=== PATIENT | female | born 1955 | race Caucasian/White ===

== ENCOUNTER → 2019-11-20 14:58 | Outpatient (CLI) | payer BC, SELFPAY ==
--- NOTE | ~2019-11-20 | MM_ITS ---
EXAMINATION: MM screening [facility] BI w aide HISTORY: Screening mammogram TECHNIQUE: Craniocaudal and mediolateral oblique 3-D tomosynthesis images were obtained and synthetic 2-D images were generated. CAD analysis was submitted and interpreted. COMPARISON: 11/15/2018, 09/26/2017, 08/05/2016 BREAST PARENCHYMAL COMPOSITION: There are scattered areas of fibroglandular density. FINDINGS: There is no evidence of suspicious mass, calcification, or architectural distortion to sugg est malignancy in either breast. There has been no suspicious interval change. IMPRESSION: 1. No mammographic evidence of malignancy. 2. Recommend routine screening mammography in one year. BI-RADS Category 1: Negative Reviewed, dictated and finalized at location A.
== END ==
PROVIDERS: Visit Provider Nurse Practitioner Family
DX: Z12.31 Encounter for screening mammogram for malignant neoplasm of breast (principal)
CPT/HCPCS: 77063; 77067

== ENCOUNTER → 2020-12-07 13:16 | Outpatient (CLI) | payer BC, SELFPAY ==
--- NOTE | ~2020-12-07 | MM_ITS ---
EXAMINATION: MM screening [facility] BI w aide HISTORY: Screening TECHNIQUE: Craniocaudal and mediolateral oblique 3-D tomosynthesis images were obtained and synthetic 2-D images were generated. CAD analysis was submitted and interpreted. COMPARISON: Comparison to multiple prior studies sequentially, with oldest reviewed study dated 09/20. BREAST PARENCHYMAL COMPOSITION: There are scattered areas of fibroglandular density. FINDINGS: There is no evidence of suspicious mass, calcification, or architectural distortion to sugg est malignancy in either breast. There has been no suspicious interval change. IMPRESSION: 1. No mammographic evidence of malignancy. 2. Recommend routine screening mammography in one year. BI-RADS Category 1: Negative Reviewed, dictated and finalized at location A.
== END ==
PROVIDERS: PCP Nurse Practitioner Family; Visit Provider Nurse Practitioner Family
DX: Z12.31 Encounter for screening mammogram for malignant neoplasm of breast (principal)
CPT/HCPCS: 77063; 77067

== ENCOUNTER → 2022-02-14 13:15 | Outpatient (CLI) | payer BC, SELFPAY ==
--- NOTE | ~2022-02-14 | MM_ITS ---
EXAMINATION: MM screening [facility] BI w aide HISTORY: Screening TECHNIQUE: Craniocaudal and mediolateral oblique 3-D tomosynthesis images were obtained and synthetic 2-D images were generated. CAD analysis was submitted and interpreted. COMPARISON: Comparison to multiple prior studies sequentially, with oldest reviewed study dated 08/18. BREAST PARENCHYMAL COMPOSITION: The breasts are almost entirely fatty. FINDINGS: There is no evidence of suspicious mass, calcification, or architectural distortion to sugg est malignancy in either breast. There has been no suspicious interval change. IMPRESSION: 1. No mammographic evidence of malignancy. 2. Recommend routine screening mammography in one year. BI-RADS Category 1: Negative Reviewed, dictated and finalized at location A.
== END ==
PROVIDERS: PCP Nurse Practitioner Family; Visit Provider Nurse Practitioner Family
DX: Z12.31 Encounter for screening mammogram for malignant neoplasm of breast (principal)
CPT/HCPCS: 77063; 77067

== ENCOUNTER 2023-02-21 02:05 | Day surgery (SDC) | payer BC, SELFPAY ==
[2023-02-14 14:16] VITALS: BMI 31.3
[2023-02-21 08:39] VITALS: BP 158/110; PULSE 97; RESP 17; TEMP 36.4; O2SAT 100; BMI 31.3
--- NOTE | 2023-02-21 08:49 | WPDANESEPPF ---
Anes - Initial Pre Proc Eval Procedure: Operation Date: 02/21/23 09:45 Proposed Procedures p Colonoscopy - Jt Naranjo MD Date/Time: 02/21/23 08:49 Surgeon: Jt Naranjo MD Pre Op Diagnosis: positive cologuard Patient Data Age: 67 Gender: F Height: 1.73 m Weight: 93.4 kg Last Vital Signs Temp 97.6 F 02/21/23 08:39 Pulse 97 02/21/23 08:39 Resp 17 02/21/23 08:39 BP 158/110 H 02/21/23 08:39 Pulse Ox 100 02/21/23 08:39 O2 Del Method Room Air 02/21/23 08:39 Allergies Allergy/AdvReac Type Severity Reaction Status Date / Time prochlorperazine Allergy Mild Muscle Verified 02/21/23 08:38 Pain, Muscle Spasms Home Medications Medication Instructions Recorded Confirmed Type brexpiprazole 2 mg tablet (Rexulti) 2 mg PO DAILY 02/14/23 02/21/23 History bupropion HCl 150 mg 24 hr tablet, 150 mg PO TID 02/14/23 02/21/23 History extended release dicyclomine 20 mg tablet 20 mg PO QID PRN Diarrhea 02/14/23 02/21/23 History duloxetine 30 mg capsule,delayed 30 mg PO TID 02/14/23 02/21/23 History release eluxadoline 100 mg tablet (Viberzi) 100 mg PO DAILY 02/14/23 02/21/23 History lamotrigine 100 mg tablet 100 mg PO DAILY 02/14/23 02/21/23 History promethazine 25 mg tablet 25 mg PO DAILY 02/14/23 02/21/23 History Patient hx anesthesia problems: none Family hx anesthesia problems: none Results Review: All pre-operative results and documents have been reviewed as part of the pre-operative evaluation. [facility] [place] Past Medical History Medical History (Updated 02/21/23 @ 08:54 by Jt Naranjo MD) Positive colorectal cancer screening using Cologuard test Social History Social History Smoking status: Never smoker Alcohol intake: never Substance use: never Substance use type: does not use Living arrangements: with family Spiritual care concerns: No Anes - Eval Final PreProcedure Day of Procedure 02/21/23 08:49 Patient weight: obese Heart: regular rate and rhythm Lungs: clear to auscultation Airway: Mallampati scale class II Neurological: alert and oriented Last oral intake: >/= 8 hours ASA classification: II Emergent: no Anesthetic plan: proceed Anesthesia type and monitoring: general GIVS and standard monitoring Results Review: All pre-operative results and documents have been reviewed as part of the pre-operative evaluation. Informed Consent: The patient's anesthetic plan and its attendant risks and benefits were discussed with the patient/family/POA. Questions were solicited and answers provided to the satisfaction of the patient/family/POA.
[2023-02-21] MEDS: LACTATED RINGERS 1,000 ML 150 ML IV CONT (08:52)
--- NOTE | 2023-02-21 08:53 | PM.HPGS ---
History of Present Illness History of Present Illness Consent: Risks, benefits, and alternatives have been discussed and questions answered. Patient agrees to proceed with procedure. Chief complaint: positive cologuard Narrative: Belinda Cortes is a 67 year old female with + cologuard, had colonoscopy about 10 years ago Review of Systems Constitutional: Constitutional: Denies headache(s) and Denies weakness Eyes: Eyes: Denies blurry vision ENT: Reports Normal hearing present, Denies headache(s) and Denies neck pain Cardiovascular: Cardiovascular: Denies chest pain and Denies dyspnea Respiratory: Respiratory: Denies dyspnea Gastrointestinal: Gastrointestinal: Reports no additional gastrointestinal complaints Genitourinary: Genitourinary: Denies dysuria Musculoskeletal: Musculoskeletal: Denies neck pain Integumentary/Breasts: Skin/Breast: Denies dry skin Neurologic: Reports Normal hearing present, Denies headache(s) and Denies weakness Psychiatric: Psychiatric: Denies anxiety Endocrine: Endocrine: Denies change in body appearance Hematologic/Lymphatic: Hematologic/Lymphatic: Denies easy bleeding Allergic/Immunologic: Allergic/Immunologic: Denies urticaria PMFSH Past Medical History Medical History (Updated 02/21/23 @ 08:54 by Jt Naranjo MD) Positive colorectal cancer screening using Cologuard test Social History Social History Smoking status: Never smoker Alcohol intake: never Substance use: never Substance use type: does not use Living arrangements: with family Spiritual care concerns: No Meds Home Medications and Allergies Home Medications Medication Instructions Recorded Confirmed Type brexpiprazole 2 mg tablet (Rexulti) 2 mg PO DAILY 02/14/23 02/21/23 History bupropion HCl 150 mg 24 hr tablet, 150 mg PO TID 02/14/23 02/21/23 History extended release dicyclomine 20 mg tablet 20 mg PO QID PRN Diarrhea 02/14/23 02/21/23 History duloxetine 30 mg capsule,delayed 30 mg PO TID 02/14/23 02/21/23 History release eluxadoline 100 mg tablet (Viberzi) 100 mg PO DAILY 02/14/23 02/21/23 History lamotrigine 100 mg tablet 100 mg PO DAILY 02/14/23 02/21/23 History promethazine 25 mg tablet 25 mg PO DAILY 02/14/23 02/21/23 History Allergies Allergy/AdvReac Type Severity Reaction Status Date / Time prochlorperazine Allergy Mild Muscle Verified 02/21/23 08:38 Pain, Muscle Spasms Vital Signs Vital Signs - 24 hr 02/21/23 08:39 Temperature 97.6 F Pulse Rate 97 Respiratory Rate 17 Blood Pressure 158/110 H Pulse Oximetry 100 Oxygen Delivery Room Air Exam Const: General: comfortable and no acute distress HENMT: Face/Nose/Sinus: Normal nares present Eyes: General: appearance normal, both eyes and all related structures Neck: Neck: no JVD Resp: Auscultation: clear to auscultation bilaterally Cardio: Rate: regular rate Rhythm: regular rhythm GI: Inspection: non-distended GI Palp: Yes Soft to palpation Skin: General skin exam: normal color Neuro: General: gait normal Speech: normal speech Extrem: General: normal to inspection Psych: Mental Status: mental status grossly normal Assessment and Plan Assessment and plan (1) Positive colorectal cancer screening using Cologuard test: Code(s): R19.5 - Other fecal abnormalities Status: Acute Assessment and Plan: colonoscopy
[2023-02-21 09:17] VITALS: BP 126/75; PULSE 87; RESP 22; O2SAT 100
[2023-02-21 09:27] VITALS: BP 116/69; PULSE 80; RESP 24; O2SAT 96
[2023-02-21 09:37] VITALS: BP 119/74; PULSE 75; RESP 15; O2SAT 100
== END 2023-02-21 09:45 | disposition home or self-care (01) ==
PROVIDERS: PCP Nurse Practitioner Family; Visit Provider Internal Medicine Gastroenterology
PROC: 0DJD8ZZ Inspection of Lower Intestinal Tract, Via Natural or Artificial Opening Endoscopic (ICD-10-PCS; CPT 45378; principal; 2023-02-21 09:45)
DX: R19.5 Other fecal abnormalities (principal); D12.3 Benign neoplasm of transverse colon; K57.30 Diverticulosis of large intestine without perforation or abscess without bleeding; K64.8 Other hemorrhoids; E66.9 Obesity, unspecified; Z68.31 Body mass index [BMI] 31.0-31.9, adult
CPT/HCPCS: 45385; 88305; J2704; J7120

== ENCOUNTER 2023-03-19 21:56 | Emergency (ER) | payer BC, SELFPAY ==
--- NOTE | ~2023-03-19 | CT_ITS ---
Noncontrast CT scan of the cervical spine Technique: Multiple contiguous axial [address] images of the cervical spine were obtained and rec onstructed in 2D sagittal and coronal planes on the acquisition scanner. Dose reduction technique was used on this scan by utilizing automated exposure control, adjustment of the mA and/or kV according to patient size. The dose-length product (DLP) was 681.00 mGy-cm. Clinical History: Pain Findings: No fracture identified. There is straightening of normal cervical lordosis, with minimal gr jaki 1 anterolisthesis of C3 over C4, and of C4 over C5. There is moderate degenerative disc narrowing at C5-C6 and C6-C7. There is probable right neural foraminal narrowing at C4-C5 with right facet art hropathy. There is left neural foraminal narrowing at C5-C6, and bilateral neural foraminal narrowing at C6-C7. No prevertebral soft tissue swelling. Impression: No fracture. Minimal grade 1 anterolisthesis of C3 over C4, and of C4 on C5. Mild degenerative spondylosis, as above. Reviewed, dictated and finalized at [facility]. [employer] Impression: No fracture. Minimal grade 1 anterolisthesis of C3 over C4, and of C4 on C5. Mild degenerative spondylosis, as above.
--- NOTE | ~2023-03-19 | CT_ITS ---
Non-contrast Head CT History: Head injury Technique: Axial non-contrast imaging of the brain was performed. Dose reduction technique was used on this scan by utilizing automated exposure control and iterative reconstruction technique. The dose -length product (DLP) was 681.00 mGy-cm. Findings: There is no evidence of intracranial hemorrhage, mass lesion, or acute infarct. Brain par enchyma appears normal. The ventricles and subarachnoid spaces are normal in size. The calvarium ap pears normal. The visualized paranasal sinuses and mastoid air cells are clear. Impression: No significant abnormality seen. Reviewed, dictated and finalized at location . [employer] Impression: No significant abnormality seen.
[2023-03-19 22:02] VITALS: BP 185/115; PULSE 97; RESP 19; TEMP 36.1; O2SAT 99
[2023-03-19 22:58] VITALS: BP 189/116; PULSE 95; RESP 20; O2SAT 98
--- NOTE | 2023-03-19 23:01 | ED.GENADULT ---
HPI - General Adult General Chief complaint: Fall Stated complaint: Fall, face lac Time Seen by Provider: 03/19/23 22:41 History of Present Illness HPI narrative: Patient is a 67-year-old female who presents emergency department with chief complaint of head injury. Patient reports she was walking her trauma tripped fell struck her head patient reports no loss of consciousness patient reports that she has a large laceration to her forehead patient reports that she has no dizziness but does report that she has nausea afterwards. Related Data Home Medications Medication Instructions Recorded Confirmed brexpiprazole 2 mg tablet (Rexulti) 2 mg PO DAILY 02/14/23 02/21/23 bupropion HCl 150 mg 24 hr tablet, 150 mg PO TID 02/14/23 02/21/23 extended release dicyclomine 20 mg tablet 20 mg PO QID PRN Diarrhea 02/14/23 02/21/23 duloxetine 30 mg capsule,delayed 30 mg PO TID 02/14/23 02/21/23 release eluxadoline 100 mg tablet (Viberzi) 100 mg PO DAILY 02/14/23 02/21/23 lamotrigine 100 mg tablet 100 mg PO DAILY 02/14/23 02/21/23 promethazine 25 mg tablet 25 mg PO DAILY 02/14/23 02/21/23 Allergies Allergy/AdvReac Type Severity Reaction Status Date / Time prochlorperazine Allergy Mild Muscle Verified 03/19/23 21:58 Pain, Muscle Spasms Review of Systems Review of Systems: A 10 system review of systems was completed on the patient and is negative except for what is stated in the HPI. Nursing and ancillary documentation was reviewed. [facility] Past Medical History Medical History Positive colorectal cancer screening using Cologuard test Social History Social History Smoking status: Never smoker Alcohol intake: never Substance use: never Substance use type: does not use Living arrangements: with family Spiritual care concerns: No Exam Narrative: GENERAL: Well-appearing, well-nourished, and in no acute distress. HEAD: Normocephalic, 5 cm laceration of the forehead. EYES: PERRLA and EOMI. ENT: Nares clear, no rhinorrhea or epistaxis. Mucous membranes moist. NECK: Supple. CHEST: Clear to auscultation. No respiratory distress. HEART: Regular rate and rhythm. No murmur heard. Normal peripheral pulses. ABDOMEN: Soft, nontender, nondistended, normal active bowel sounds. EXTREMITIES: Normal range of motion. No edema. SKIN: Warm, dry, no rash. NEURO: No focal deficits. Alert and oriented x3. PSYCH: Normal mood and affect. Course Vital Signs Vital signs: Vital Signs Temperature 36.1 C L 03/19/23 22:02 Pulse Rate 97 03/19/23 22:02 Respiratory Rate 19 03/19/23 22:02 Blood Pressure 185/115 H 03/19/23 22:02 Pulse Oximetry 99 03/19/23 22:02 Oxygen Delivery Room Air 03/19/23 22:02 Temperature 36.1 C L 03/19/23 22:02 Pulse Rate 95 03/19/23 22:58 Respiratory Rate 20 03/19/23 22:58 Blood Pressure 189/116 H 03/19/23 22:58 Pulse Oximetry 98 03/19/23 22:58 Oxygen Delivery Room Air 03/19/23 22:02 Procedures Laceration Laceration 1: Date: 03/20/23 Time: 00:43 Site: face Side (If applicable): left Size (cm): 5 Description: linear Depth: involves muscle layer Local Anesthetic: lidocaine 1% and with epi Amount of anesthesia used (mL): 6 Pre-repair: wound explored, irrigated and irrigated extensively ====== Skin Level ====== Skin layer closed with: prolene Size (cm): 5-0 Number of sutures: 10 Technique: simple, interrupted ====== Subcutaneous Layer ====== Subcutaneous layer closed with: vicryl Size: 4-0 Number of sutures: 3 Technique: simple, interrupted ====== Muscle Layer ====== ====== Tendon Layer ====== Medical Decision Making MDM Narrative Medical decision making narrative: Dif
[2023-03-19] MEDS: ONDANSETRON HCL ODT 4 MG TABLET PO (23:02)
--- NOTE | 2023-03-19 23:11 | PC.NURSE ---
Assumed care of pt. Tech at bedside washing out lac. Pt tolerating well
[2023-03-19 23:27] VITALS: PULSE 99; RESP 16; O2SAT 99
[2023-03-19 23:30] VITALS: PULSE 97; RESP 15; O2SAT 100
[2023-03-19 23:31] VITALS: BP 177/95; PULSE 98; RESP 20; O2SAT 99
[2023-03-19 23:50] VITALS: PULSE 102; RESP 19; O2SAT 100
[2023-03-20] VITALS: PULSE 98; RESP 15; O2SAT 100
[2023-03-20 00:15] VITALS: PULSE 99; RESP 20; O2SAT 99
[2023-03-20 00:30] VITALS: PULSE 96; RESP 16; O2SAT 100
[2023-03-20] MEDS: LIDO 1%/EPINEPHRINE 1:100,000 20 ML VIAL (00:43)
[2023-03-20 00:48] VITALS: BP 155/98; PULSE 103; RESP 17; O2SAT 100
--- NOTE | 2023-03-20 01:09 | PC.NURSE ---
Pt's sutures dressed with abx ointment and 2x2. Pt tolerated well.
== END 2023-03-20 01:20 | disposition home or self-care (01) ==
PROVIDERS: Emergency Provider Emergency Medicine; PCP Nurse Practitioner Family
DX: S01.81XA Laceration without foreign body of other part of head, initial encounter (principal); M47.812 Spondylosis without myelopathy or radiculopathy, cervical region; W01.0XXA Fall on same level from slipping, tripping and stumbling without subsequent striking against object, initial encounter
CPT/HCPCS: 12052; 70450; 72125; 99284; A9270